=== PATIENT | male | born 1955 | race Caucasian/White ===

== ENCOUNTER → 2016-07-08 | Outpatient (CLI) | payer MEDICARE | DX: G40.909 Epilepsy, unspecified, not intractable, without status epilepticus (principal); R90.89 Other abnormal findings on diagnostic imaging of central nervous system | CPT/HCPCS: 70551 ==

== ENCOUNTER 2020-12-07 19:45 | Inpatient (IN) | payer OTHER ==
[~2020-12-07] VITALS: Ht 175.3 cm; Wt 85.7 kg
[~2020-12-07 19:45] MED LIST: ALPRAZOLAM0.5 MG PO; ASPIR-LOW81 MG PO; ASPIRIN CHEWABL81 MG PO; ATORVASTATIN CA20 MG PO; BRILINTA 90 MG90 MG PO; DEPAKOTE 250 M250 MG PO; DEPAKOTE ER500 MG PO; ENTRESTO 24 MG1 EACH PO; FUROSEMIDE40 MG PO; KLONOPIN TAB 00.5 MG PO; LASIX40 MG PO; LISINOPRIL5 MG PO; LOPRESSOR 25 MG25 MG PO; NORCO 10-325 T1 EACH PO; PAXIL10 MG PO; POTASSIUM CHLO20 ME2 PO; RESTORIL 15 MG15 MG PO; VITAMIN D21250 MCG PO; ZANAFLEX4 MG PO
[2020-12-07 20:12] LABS: HEMOGLOBIN 15.1 gm/dl (14.0-17.5); RED BLOOD COUNT 4.25 M/UL (4.20-5.50); WHITE BLOOD COUNT 11.1 K/UL (4.5-11.0)
[2020-12-07 20:46] LABS: BUN/CREATININE RATIO 11 (0-10)
[2020-12-08 04:23] LABS: HEMOGLOBIN 13.2 gm/dl (14.0-17.5); WHITE BLOOD COUNT 8.8 K/UL (4.5-11.0)
[2020-12-08 04:25] LABS: RED BLOOD COUNT 3.81 M/UL (4.20-5.50)
[2020-12-08 04:43] LABS: BUN/CREATININE RATIO 11 (0-10)
[2020-12-08] MEDS ORDERED: ATORVASTATIN CA80 MG PO (10:28)
[2020-12-08] MEDS ORDERED: DIVALPROEX SOD500 M1 PO (10:31)
[2020-12-08] MEDS ORDERED: LEVOTHYROXINE50 MCG PO (14:17)
--- NOTE | 2020-12-09 05:56 | NUR ---
DR. ARCHER MADE AWARE OF PT NOT HAVING ANY URINE OUTPUT. SEE PROVIDER NOTE FOR MORE INFO
[2020-12-10 05:50] LABS: HEMOGLOBIN 13.7 gm/dl (14.0-17.5); RED BLOOD COUNT 3.97 M/UL (4.20-5.50); WHITE BLOOD COUNT 7.7 K/UL (4.5-11.0)
[2020-12-10 08:14] LABS: BUN/CREATININE RATIO 16 (0-10)
--- NOTE | 2020-12-11 | NUR ---
ASSUMED CARE OF PATIENT AT THIS TIME. NOTED WITH SLIGHT CONFUSION. CALM BUT COOPERATIVE AND FRIENDLY. BIPAP IN PLACE AT THIS TIME. PATIENT PULLING ATTEMPTING TO TAKE OFF. ASKED HIM TO WEAR FOR A ITTLE WHILE TO HELP HIS BREATHING AND HE AGREED. LUNGS SL COARSE, "WET" SOUNDING. OCCASIONAL COUGH, SMALL AMOUNT THIN WHITE SPUTUM. HOWE CATH IN PLACE WITH DARK TEA COLORED URINE. PT NOTED PULLING ON CATHETER. ENCOURAGED TO NOT PULL ON CATHETER. PT NOTED WITH A SKIN TEAR ON KNEE, NOTED PATIENT ATTEMPTING TO CRAWL OUT OF BED. ALL FALL PRECAUTIONS IN PLACE, BED ALARM AND SIDERAILS UP.
[2020-12-11 09:00] LABS: HEMOGLOBIN 13.4 gm/dl (14.0-17.5); RED BLOOD COUNT 3.89 M/UL (4.20-5.50); WHITE BLOOD COUNT 6.8 K/UL (4.5-11.0)
--- NOTE | 2020-12-11 09:24 | NUR ---
patient has been having facial seizures lasting aprox 10-20 seconds several times while I was giving medications. reported this to lani ramos of dr. vila. received order. patient at this time resting comfortably,family member at bedside. unable to give po meds and received order not to give at this time from lani ramos.
[2020-12-11 09:38] LABS: BUN/CREATININE RATIO 15 (0-10)
--- NOTE | 2020-12-11 12:36 | NUR ---
patient have episode of seizure lasted approx [address] vila per irene rn, and was informed to notify dr. enamorado. irene contacted and informed of patient seizures episode, medications given and dr. vila order to call him and he stated he will come and see patient.
--- NOTE | 2020-12-11 13:00 | NUR ---
DR. MIMS on the floor seen patient and stated will write orders
--- NOTE | 2020-12-11 16:10 | NUR ---
patient have episode of facial seizure activity lasted approx 35 sec. given patient ativan as ordered. patient restinc comfortably with family member at bedside, using bipap as ordered.
--- NOTE | 2020-12-11 17:04 | NUR ---
reported the patient facial seizures episode, current vital signs no new order received- dr. vila acknowledged
[2020-12-12 09:29] LABS: HEMOGLOBIN 12.8 gm/dl (14.0-17.5); RED BLOOD COUNT 3.74 M/UL (4.20-5.50); WHITE BLOOD COUNT 6.6 K/UL (4.5-11.0)
--- NOTE | 2020-12-12 09:41 | NUR ---
patient has been having several facial seizures and lasted the most approx 1 minute. during this time, dr frazier on the floor and seen patient seizing. family member with the patient. received order from dr. frazier to give another dose of ativan after 1st dose given. dr. live seen patient, and at this time patient is resting comfortably, vitals wnl patient on oxygen 2l via nasal cannula. bipap stop at this time.
[2020-12-12] MEDS ORDERED: MAG-OX 400 TAB400 MG PO (09:51)
[2020-12-12 10:26] LABS: BUN/CREATININE RATIO 19 (0-10)
--- NOTE | 2020-12-12 12:42 | NUR ---
patient to travel ambulance [facility].
== END 2020-12-12 13:27 | disposition short-term general hospital (02) | DRG 100 ==
LOC: ER1 19:45 → CDU 22:27 → M/S 12-08 13:28
PROVIDERS: Internal Medicine; Student in an Organized Health Care Education/Training Program; ADMIT Internal Medicine
DX: G40.109 Localization-related (focal) (partial) symptomatic epilepsy and epileptic syndromes with simple partial seizures, not intractable, without status epilepticus (principal); J96.01 Acute respiratory failure with hypoxia; J69.0 Pneumonitis due to inhalation of food and vomit; I50.42 Chronic combined systolic (congestive) and diastolic (congestive) heart failure; Z20.822 Contact with and (suspected) exposure to COVID-19; I25.10 Atherosclerotic heart disease of native coronary artery without angina pectoris; E78.5 Hyperlipidemia, unspecified; F17.210 Nicotine dependence, cigarettes, uncomplicated; I10 Essential (primary) hypertension; I27.20 Pulmonary hypertension, unspecified; D75.1 Secondary polycythemia; I45.10 Unspecified right bundle-branch block; Z79.01 Long term (current) use of anticoagulants; Z79.82 Long term (current) use of aspirin
CPT/HCPCS: 36415; 36600; 70450; 70496; 70498; 70551; 71045; 72125; 80048; 80053; 80307; 81001; 82140; 82550; 82553; 82803; 83690; 83735; 83874; 83880; 84100; 84132; 84439; 84443; 84484; 85025; 85027; 93005; 94640; 94660; 94664; 94760; 95819; 96372; 96374; 96375; 96376; 97161; 97530-GP-CQ; 99285; G0378; G0480; J0133; J1630; J1650; J1885; J1940; J1953; J2060; J2543; J7030; J7050; Q9967; U0002

== ENCOUNTER 2021-01-29 13:24 | Emergency (ER) | payer OTHER ==
[~2021-01-29 13:24] MED LIST changes: +ATORVASTATIN CA80 MG PO; +DIVALPROEX SOD500 M1 PO; +LEVOTHYROXINE50 MCG PO; +MAG-OX 400 TAB400 MG PO
[2021-01-29 17:11] LABS: HEMOGLOBIN 13.4 gm/dl (14.0-17.5); RED BLOOD COUNT 4.15 M/UL (4.20-5.50); WHITE BLOOD COUNT 8.1 K/UL (4.5-11.0)
[2021-01-29 17:34] LABS: BUN/CREATININE RATIO 13 (0-10)
== END 2021-01-29 19:15 | disposition home or self-care (01) ==
LOC: ER1 13:24
PROVIDERS: Physician Assistant
DX: F13.90 Sedative, hypnotic, or anxiolytic use, unspecified, uncomplicated (principal); G40.909 Epilepsy, unspecified, not intractable, without status epilepticus; F41.9 Anxiety disorder, unspecified; I25.2 Old myocardial infarction; F17.200 Nicotine dependence, unspecified, uncomplicated
CPT/HCPCS: 80053; 82550; 82553; 83874; 84484; 85025; 93005; 99284; G0480; Q0177

== ENCOUNTER 2021-02-01 17:03 | Emergency (ER) | payer OTHER ==
[2021-02-01 17:48] LABS: HEMOGLOBIN 13.3 gm/dl (14.0-17.5); RED BLOOD COUNT 4.11 M/UL (4.20-5.50); WHITE BLOOD COUNT 5.5 K/UL (4.5-11.0)
[2021-02-01 18:32] LABS: BUN/CREATININE RATIO 12 (0-10)
== END 2021-02-01 21:45 | disposition home or self-care (01) ==
LOC: ER1 17:03
PROVIDERS: Physician Assistant
DX: E86.0 Dehydration (principal); E87.6 Hypokalemia; R56.9 Unspecified convulsions; E78.5 Hyperlipidemia, unspecified; I25.2 Old myocardial infarction; I10 Essential (primary) hypertension; F17.200 Nicotine dependence, unspecified, uncomplicated
CPT/HCPCS: 70450; 71045; 80053; 80307; 81001; 82550; 82553; 83874; 84484; 85025; 93005; 99284; G0480

== ENCOUNTER 2021-02-09 17:26 | Emergency (ER) | payer OTHER | END 2021-02-09 18:00 | disposition left against medical advice (07) | LOC: ER1 17:26 | DX: Z53.21 Procedure and treatment not carried out due to patient leaving prior to being seen by health care provider (principal) ==

== ENCOUNTER 2021-05-11 19:47 | Emergency (ER) | payer OTHER ==
[2021-05-11 20:27] LABS: HEMOGLOBIN 13.6 gm/dl (14.0-17.5); RED BLOOD COUNT 4.38 M/UL (4.20-5.50); WHITE BLOOD COUNT 12.4 K/UL (4.5-11.0)
[2021-05-11 21:01] LABS: BUN/CREATININE RATIO 15 (0-10)
[2021-05-11] MEDS ORDERED: KEPPRA 500 MG500 MG PO (22:54)
== END 2021-05-11 23:20 | disposition home or self-care (01) ==
LOC: ER1 19:47
PROVIDERS: Emergency Medicine
DX: G40.909 Epilepsy, unspecified, not intractable, without status epilepticus (principal); G81.94 Hemiplegia, unspecified affecting left nondominant side; Z20.822 Contact with and (suspected) exposure to COVID-19
CPT/HCPCS: 70450; 70496; 70498; 80048; 82550; 82553; 82962; 83735; 83874; 84484; 85025; 85610; 85730; 93005; 96374; 99285; G0480; J1953; Q9967; U0002

== ENCOUNTER 2021-07-06 16:20 | Emergency (ER) | payer OTHER ==
[~2021-07-06 16:20] MED LIST changes: +KEPPRA 500 MG500 MG PO
[2021-07-06 16:44] LABS: HEMOGLOBIN 14.8 gm/dl (14.0-17.5); RED BLOOD COUNT 4.75 M/UL (4.20-5.50); WHITE BLOOD COUNT 9.3 K/UL (4.5-11.0)
[2021-07-06 17:17] LABS: BUN/CREATININE RATIO 19 (0-10)
== END 2021-07-06 20:33 | disposition home or self-care (01) ==
LOC: ER1 16:20
PROVIDERS: Nurse Practitioner
DX: R07.89 Other chest pain (principal); M25.512 Pain in left shoulder; I10 Essential (primary) hypertension; Z20.822 Contact with and (suspected) exposure to COVID-19; F17.210 Nicotine dependence, cigarettes, uncomplicated; W19.XXXA Unspecified fall, initial encounter
CPT/HCPCS: 0240U; 51702; 70450; 71045; 73030; 73060; 73070; 80053; 81001; 82550; 82553; 84484; 85025; 85379; 93005; 99285; J1885; Q9967

== ENCOUNTER 2021-07-26 12:37 | Inpatient (IN) | payer OTHER ==
[~2021-07-26] VITALS: Ht 177.8 cm; Wt 79.1 kg
[2021-07-26 13:47] LABS: HEMOGLOBIN 12.1 gm/dl (14.0-17.5); RED BLOOD COUNT 3.82 M/UL (4.20-5.50); WHITE BLOOD COUNT 7.4 K/UL (4.5-11.0)
[2021-07-26 14:13] LABS: BUN/CREATININE RATIO 11 (0-10)
[2021-07-26] MEDS ORDERED: CONSTULOSE10 GM/15 M PO (22:53)
[2021-07-26] MEDS ORDERED: SEROQUEL25 MG PO (22:59)
[2021-07-26] MEDS ORDERED: LEVOTHYROXINE50 MCG PO (23:00)
[2021-07-26] MEDS ORDERED: LOPRESSOR 25 MG25 MG PO (23:02)
[2021-07-27] MEDS ORDERED: VITAMIN D21250 MCG PO (11:14)
[2021-07-27] MEDS ORDERED: TYLENOL EXTRA500 MG PO (16:25)
[2021-07-27] MEDS ORDERED: IBUPROFEN200 MG PO (16:26)
[2021-07-27] MEDS ORDERED: ZONEGRAN100 MG PO (22:53)
[2021-07-27] MEDS ORDERED: CARBIDOPA-LEVO1 EA14 PO (22:57)
[2021-07-27] MEDS ORDERED: KLONOPIN1 MG PO (22:59)
[2021-07-27] MEDS ORDERED: K-TAB ER20 MEQ PO (23:01)
[2021-07-27] MEDS ORDERED: LASIX40 MG PO (23:02)
[2021-07-28 02:47] LABS: RED BLOOD COUNT 3.16 M/UL (4.20-5.50); WHITE BLOOD COUNT 5.2 K/UL (4.5-11.0)
[2021-07-28 03:13] LABS: BUN/CREATININE RATIO 15 (0-10)
== END 2021-07-31 12:59 | DRG 101 ==
LOC: ER1 12:37 → CDU 16:57 → PROG CARE 16:57
PROVIDERS: Physician Assistant; ADMIT Internal Medicine Infectious Disease
DX: G40.909 Epilepsy, unspecified, not intractable, without status epilepticus (principal); G93.40 Encephalopathy, unspecified; Z20.822 Contact with and (suspected) exposure to COVID-19; G20 Parkinson's disease; J44.9 Chronic obstructive pulmonary disease, unspecified; I25.10 Atherosclerotic heart disease of native coronary artery without angina pectoris; I11.0 Hypertensive heart disease with heart failure; I50.9 Heart failure, unspecified; D75.1 Secondary polycythemia; E78.5 Hyperlipidemia, unspecified; I45.10 Unspecified right bundle-branch block; I27.20 Pulmonary hypertension, unspecified; F17.210 Nicotine dependence, cigarettes, uncomplicated; R40.0 Somnolence; R53.81 Other malaise; M54.9 Dorsalgia, unspecified; Z79.82 Long term (current) use of aspirin; Z82.49 Family history of ischemic heart disease and other diseases of the circulatory system; I25.2 Old myocardial infarction; Z95.5 Presence of coronary angioplasty implant and graft
CPT/HCPCS: 36415; 51702; 70450; 70553; 71045; 80053; 80061; 80307; 81001; 82140; 82550; 82553; 83735; 83880; 84443; 84484; 85025; 92610; 93005; 94640; 94760; 96374; 96375; 97110-GP-CQ; 97116-GP-CQ; 97162; 97166; 97530; 97530-GP-CQ; 97535; 99285; A9577; G0480; J0456; J0696; J1650; J1953; J2405; U0002

== ENCOUNTER 2021-12-08 18:29 | Emergency (ER) | payer OTHER ==
[~2021-12-08 18:29] MED LIST changes: +ATORVASTATIN CA40 MG PO; -ATORVASTATIN CA80 MG PO; +CARBIDOPA-LEVO1 EA14 PO; +CONSTULOSE10 GM/15 M PO; +DEPAKOTE500 MG PO; +IBUPROFEN200 MG PO; +K-TAB ER20 MEQ PO; +KLONOPIN1 MG PO; +Lidocaine 5% TOP; +NICOTINE PATCH1 EACH TD; +PLAVIX75 MG PO; +SEROQUEL25 MG PO; +TYLENOL EXTRA500 MG PO; +ZONEGRAN100 MG PO
[2021-12-08 18:54] LABS: HEMOGLOBIN 12.8 gm/dl (14.0-17.5); RED BLOOD COUNT 4.02 M/UL (4.20-5.50); WHITE BLOOD COUNT 6.2 K/UL (4.5-11.0)
[2021-12-08 19:28] LABS: BUN/CREATININE RATIO 17 (0-10)
[2021-12-09] MEDS ORDERED: ASPIRIN EC81 MG PO (09:01)
[2021-12-09] MEDS ORDERED: LEVETIRACETAM500 MG PO (09:01)
[2021-12-09] MEDS ORDERED: CLOPIDOGREL75 MG PO (09:02)
[2021-12-09] MEDS ORDERED: BISACODYL10 MG PR (09:07)
[2021-12-09] MEDS ORDERED: LACTULOSE10 GM/15 M PO (09:08)
== END 2021-12-09 01:25 | disposition left against medical advice (07) ==
LOC: ER1 18:29
PROVIDERS: Emergency Medicine
DX: R53.1 Weakness (principal); R29.810 Facial weakness; R47.81 Slurred speech; I11.0 Hypertensive heart disease with heart failure; I50.9 Heart failure, unspecified; G40.909 Epilepsy, unspecified, not intractable, without status epilepticus; J44.9 Chronic obstructive pulmonary disease, unspecified; E78.5 Hyperlipidemia, unspecified; Z86.73 Personal history of transient ischemic attack (TIA), and cerebral infarction without residual deficits; Z86.69 Personal history of other diseases of the nervous system and sense organs; Z79.899 Other long term (current) drug therapy; Z51.81 Encounter for therapeutic drug level monitoring
CPT/HCPCS: 70450; 70496; 70498; 71045; 80053; 81001; 82550; 82553; 84484; 85025; 85610; 85730; 93005; 99285; G0480; J2997; Q9967

== ENCOUNTER 2022-01-23 21:12 | Emergency (ER) | payer OTHER ==
[~2022-01-23 21:12] MED LIST changes: +ASPIRIN EC81 MG PO; +BISACODYL10 MG PR; +CLOPIDOGREL75 MG PO; +LACTULOSE10 GM/15 M PO; +LEVETIRACETAM500 MG PO
[2022-01-23 22:32] LABS: HEMOGLOBIN 12.8 gm/dl (14.0-17.5); RED BLOOD COUNT 4.03 M/UL (4.20-5.50); WHITE BLOOD COUNT 7.2 K/UL (4.5-11.0)
[2022-01-23 23:05] LABS: BUN/CREATININE RATIO 23 (0-10)
== END 2022-01-24 03:20 ==
LOC: ER1 21:12
PROVIDERS: Family Medicine
DX: S05.12XA Contusion of eyeball and orbital tissues, left eye, initial encounter (principal); R22.0 Localized swelling, mass and lump, head; S60.512A Abrasion of left hand, initial encounter; S80.212A Abrasion, left knee, initial encounter; I10 Essential (primary) hypertension; J44.9 Chronic obstructive pulmonary disease, unspecified; G20 Parkinson's disease; W01.0XXA Fall on same level from slipping, tripping and stumbling without subsequent striking against object, initial encounter; Y92.009 Unspecified place in unspecified non-institutional (private) residence as the place of occurrence of the external cause
CPT/HCPCS: 70450; 71045; 72125; 80053; 82550; 82553; 84484; 85025; 93005; 99284